=== PATIENT | female | born 1940 | race Caucasian/White ===

== ENCOUNTER 2016-11-21 07:30 | Inpatient (IN) | payer MEDICARE ==
[~2016-11-21] VITALS: Ht 160 cm; Wt 79.4 kg
--- NOTE | 2016-11-21 18:29 | ER ---
ADMIT: 11/21/2016 RM/LOC: 424 [facility] MR#: [id number] [address] [place] [address] Emergency Room Report SEX: F AGE: 76 : 1940 DATE: 11/21/2016 TIME: 0730 hours. Please refer to my T-sheet for complete H and P. HISTORY OF PRESENT ILLNESS: Briefly, the patient is a 76-year-old, who comes in with shortness of breath. She said it started getting worse last night. She said her legs were swollen, but she also has COPD. She also has a history of atrial fibrillation, anticoagulated two weeks ago. She was admitted for pneumonia. She does not smoke. They moved up here from [place], so she does not have a primary. PHYSICAL EXAMINATION: VITAL SIGNS: Blood pressure 144/51, pulse 130, respirations 30, temp 97.2, saturating 96% on a nebulizer. GENERAL: She is anxious. HEENT: Grossly normal. LUNGS: Coarse with expiratory wheezes. Accessory muscle use. HEART: Irregularly irregular. Tachycardic. ABDOMEN: Soft. EXTREMITIES: 2+ edema. NEUROLOGIC: Alert and oriented, nonfocal. EMERGENCY DEPARTMENT COURSE: We did sepsis protocol. EKG was atrial fibrillation, rate 108. No hyperacute changes. Chest x-ray revealed cardiomegaly with a probable left lower lobe infiltrate. CBC normal. Chemistries normal except glucose 283, creatinine 1.2, mag 1.7. Cardiac enzymes negative. Lactate was 3.2, procalcitonin was normal. Blood cultures x2 were sent. Coags were within normal limits including INR 1.17. I did the whole sepsis protocol. We started antibiotics. We gave her a DuoNeb and Decadron 10 IV. She was improved. I talked to Idris, we will admit to the hospital. ASSESSMENT: 1. Lobar pneumonia. 2. Chronic obstructive pulmonary disease. 3. Atrial fibrillation, poorly controlled. 4. Hypo-therapeutic on her anticoagulation. PLAN: Admit to the hospital. Michael Cortez MD/ krystal JOB #: [id number] CC: Angel Steinberg MD, Attending Physician Angel Stienberg MD, Family Physician
--- NOTE | 2016-11-22 14:01 | HP ---
ADMIT: 11/21/2016 RM/LOC: 424 [facility] MR#: [id number] [address] [place] [address] History and Physical SEX: F AGE: 76 : 1940 DATE OF SERVICE: CHIEF COMPLAINT: Shortness of breath. HISTORY OF PRESENT ILLNESS: This is a 76-year-old female. She came in with shortness of breath that had been getting worse since last night. She has recently moved here from [place] because she lives with her son, her son recently got a job here. She does report she was in the hospital couple weeks ago and has had some chronic lung problems for a while. She thinks it is from having pneumonia as a child. Denies ever being a smoker. Denies having any asthma. We have no outside records. She is not the best historian in terms of her history. She has been coughing, nothing is coughing up. She is short of breath, occurs with exertion and it has been severe. Denies any fevers, but does admit her chest does feel tight. PAST MEDICAL HISTORY: 1. Atrial fibrillation. 2. Chronic lung disease, unspecified at this point. 3. Diabetes. 4. Hyperlipidemia. 5. Hypertension. 6. GERD. 7. Chronic anticoagulation. MEDICATIONS: 1. Albuterol nebulize q.2 hours p.r.n. 2. Atorvastatin 40 mg at bedtime. 3. Aspirin 81 mg daily. 4. Brimonidine/timolol 0.2%/0.5% two times daily, eye drops. 5. Cholecalciferol one tab daily, unknown dose. 6. Levemir insulin 30 units daily. 7. Magnesium oxide 400 mg b.i.d. 8. Metformin 1000 mg b.i.d. 9. Metoprolol 25 mg b.i.d. 10.Pantoprazole 40 mg daily. 11.Warfarin 3 mg daily. SOCIAL HISTORY: She is a never smoker. Again, lives with her son. FAMILY HISTORY: Reviewed, but noncontributory. REVIEW OF SYSTEMS: Other complete review of systems was obtained and negative except she has had some constipation. PHYSICAL EXAMINATION: VITAL SIGNS: Temperature 97.6; pulse initially 120s, now down to right at 100; respirations 16, blood pressure 134/90, oxygen saturation 97% on a couple liters of oxygen by nasal cannula. She was hypoxic when she came in. GENERAL: This is a well-appearing but elderly 76-year-old female. She is in ADMIT: 11/21/2016 RM/LOC: 424 [facility] MR#: [id number] [place] [id number] [place] [address] History and Physical SEX: F AGE: 76 : 1940 no apparent distress. HEENT: Head is normocephalic and atraumatic. She has evidence of left-sided Nesbitt's palsy, right side lazy eye. Right pupil reactive to light and accommodation. Throat is clear. NECK: Supple. Trachea not palpable. HEART: Irregularly irregular. LUNGS: Diminished breath sounds bilaterally. End-expiratory wheezes. She is actually crackly on the left lower lobe with deep breath. ABDOMEN: Soft, nontender. EXTREMITIES: Lower extremities have 2+ lower extremity edema bilaterally. She has venous insufficiency changes. She can move all extremities equally bilaterally. No other skin changes can be seen. LABORATORY AND X-RAY DATA: Urine, some glucose, otherwise clear. Lactic acid initially was 3.2, now it is 3.0. Procalcitonin less than 0.05. CMP with sodium 141, potassium 4.2, chloride 107, BUN 24, creatinine 1.2. Liver tests normal. Magnesium is 1.7. Cardiac enzymes are normal. INR is 1.17. X-ray with some left lower lobe pneumonia. ASSESSMENT: 1. Pneumonia with severe sepsis. 2. Acute hypoxic respiratory failure. 3. Diabetes. 4. Atrial fibrillation. 5. Chronic obstructive pulmonary disease. 6. Chronic kidney disease, stage 3. 7. Elevated lactic acid. PLAN: She will be given IV fluids. We will treat her with doxycycline, Zosyn, and vancomycin. Given she was in the hospital about two weeks ago, also watch her fluid intake also because of her edema. Looks like she has history of diastolic heart failure, we will also watch this closely. I will try to obtain some old records from her as well, and follow her INR closely. Angel Steinberg MD/ shirley JOB #: [id number] CC: Angel Steinberg, Attending Physician Angel Steinberg, Family Physician
[2016-11-26] MEDS ORDERED: COUMADIN DPS3 MG PO (16:37)
[2016-11-26] MEDS ORDERED: ASPIRIN EC81 MG PO (16:37)
[2016-11-26] MEDS ORDERED: MAG-OX400 MG PO (16:38)
[2016-11-26] MEDS ORDERED: LIPITOR40 MG PO (16:38)
[2016-11-26] MEDS ORDERED: LOPRESSOR DPS50 MG PO (16:38)
[2016-11-26] MEDS ORDERED: VIBRAMYCIN-DPS100 M2 PO (16:38)
[2016-11-26] MEDS ORDERED: DELTASONE DPS20 MG PO (16:38)
[2016-11-26] MEDS ORDERED: KLOR-CON M2020 ME1 PO (16:38)
[2016-11-26] MEDS ORDERED: BRIMONIDINE TAR15 M1 OS (16:39)
[2016-11-26] MEDS ORDERED: DUONEB DPS3 ML IH (16:39)
[2016-11-26] MEDS ORDERED: TIMOPTIC5 ML OU (16:39)
[2016-11-26] MEDS ORDERED: LEVEMIR100 UNIT/1 SQ (16:40)
[2016-11-26] MEDS ORDERED: MYCOSTATIN PWD15 GM TP (16:41)
[2016-11-26] MEDS ORDERED: NOVOLOG100 UNIT/2 SQ (16:41)
[2016-11-26] MEDS ORDERED: [UNRECOGNIZED DRUG - OTHER] IV (16:42)
--- NOTE | 2016-12-08 06:50 | DS ---
ADMIT: 11/21/2016 RM/LOC: 424 [facility] MR#: [id number] [address] [place] [address] General Discharge Summary SEX: F AGE: 76 : 1940 ADMISSION DATE: 11/21/2016 DISCHARGE DATE: 11/25/2016 FINAL DIAGNOSES: 1. Pneumonia. 2. Hypoxic respiratory failure, which resolved. 3. Diabetes. 4. Atrial fibrillation. 5. Chronic obstructive pulmonary disease, anticoagulation with warfarin. 6. Generalized weakness. REASON FOR ADMISSION: This is a 76-year-old female, presented with weakness and shortness of breath. HOSPITAL COURSE: She was found to have pneumonia and hypoxic respiratory failure. She was placed on pulmonary toilet regimen and IV antibiotics and she gradually did improve, however, she was quite weak. Her INR was maintained in the 2 to 3 range. By the day of discharge, she was 99% on room air, doing much better, however, still weak and needing rehabilitation, so she was set up to be discharged to [facility], which was done. DISCHARGE MEDICATIONS: 1. Aspirin 81 mg daily. 2. Coumadin 3 mg daily. 3. Prednisone 40 mg daily for three days. 4. Potassium 40 mEq daily. 5. Lipitor 40 mg at bedtime. 6. Lopressor 75 mg b.i.d. 7. Magnesium oxide 400 mg b.i.d. 8. Doxycycline 100 mg b.i.d. for 7 days. 9. DuoNebs q.i.d. 10.Brimonidine tartrate/timolol drops 0.2%/0.5% OU b.i.d. 11.Levemir 30 units subcu daily. 12.Low-dose sliding scale q.a.c. 13.Mycostatin powder to skin folds t.i.d. 14.Augmentin 875 mg b.i.d. for 7 days. DISCHARGE INSTRUCTIONS: Otherwise, regular diet. Follow up with me in 2 weeks time. She should have daily weights, PT, and OT. Angel Steinberg MD/ shirley JOB #: [id number] CC: Angel Steinberg MD, Attending Physician Angel Steinberg MD, Family Physician
[2017-03-23] MEDS ORDERED: COREG DPS12.5 MG PO (13:11)
[2017-03-23] MEDS ORDERED: LASIX DPS20 MG PO (13:16)
[2017-03-23] MEDS ORDERED: LEXAPRO DPS10 MG PO (13:16)
[2017-03-23] MEDS ORDERED: VITAMIN B1100 MG PO (13:16)
[2017-03-23] MEDS ORDERED: ASMANEX1 INH IH (13:17)
[2017-03-23] MEDS ORDERED: ZESTRIL5 MG PO (13:17)
[2017-03-23] MEDS ORDERED: TEARS NATURAL D15 ML OU (13:18)
[2017-03-23] MEDS ORDERED: MURO OU (13:18)
[2017-03-23] MEDS ORDERED: MAALOX DPS30 ML PO (13:20)
[2017-03-23] MEDS ORDERED: TYLENOL DPS325 MG PO (13:20)
== END 2016-11-25 11:35 | DRG 871 ==
LOC: ER 07:30 → 4PCU 09:03
PROVIDERS: ADMIT Internal Medicine
DX: A41.9 Sepsis, unspecified organism (principal); J18.1 Lobar pneumonia, unspecified organism; J96.01 Acute respiratory failure with hypoxia; I13.0 Hypertensive heart and chronic kidney disease with heart failure and stage 1 through stage 4 chronic kidney disease, or unspecified chronic kidney disease; E11.22 Type 2 diabetes mellitus with diabetic chronic kidney disease; I50.32 Chronic diastolic (congestive) heart failure; J44.0 Chronic obstructive pulmonary disease with (acute) lower respiratory infection; R65.20 Severe sepsis without septic shock; N18.3 Chronic kidney disease, stage 3 (moderate); I48.91 Unspecified atrial fibrillation; R79.1 Abnormal coagulation profile; E78.5 Hyperlipidemia, unspecified; K21.9 Gastro-esophageal reflux disease without esophagitis; R09.02 Hypoxemia; G51.0 Bell's palsy; Z79.01 Long term (current) use of anticoagulants; Z79.84 Long term (current) use of oral hypoglycemic drugs

== ENCOUNTER 2017-03-15 18:05 | Inpatient (IN) | payer MEDICARE ==
[~2017-03-15 18:05] MED LIST: ASPIRIN EC81 MG PO; BRIMONIDINE TAR15 M1 OS; COUMADIN DPS3 MG PO; DELTASONE DPS20 MG PO; DUONEB DPS3 ML IH; KLOR-CON M2020 ME1 PO; LEVEMIR100 UNIT/1 SQ; LIPITOR40 MG PO; LOPRESSOR DPS50 MG PO; MAG-OX400 MG PO; MYCOSTATIN PWD15 GM TP; NOVOLOG100 UNIT/2 SQ; TIMOPTIC5 ML OU; VIBRAMYCIN-DPS100 M2 PO; [UNRECOGNIZED DRUG - OTHER] IV
[2017-03-23] MEDS ORDERED: COREG DPS12.5 MG PO (13:11)
[2017-03-23] MEDS ORDERED: LEXAPRO DPS10 MG PO (13:16)
[2017-03-23] MEDS ORDERED: VITAMIN B1100 MG PO (13:16)
[2017-03-23] MEDS ORDERED: LASIX DPS20 MG PO (13:16)
[2017-03-23] MEDS ORDERED: ASMANEX1 INH IH (13:17)
[2017-03-23] MEDS ORDERED: ZESTRIL5 MG PO (13:17)
[2017-03-23] MEDS ORDERED: MURO OU (13:18)
[2017-03-23] MEDS ORDERED: TEARS NATURAL D15 ML OU (13:18)
[2017-03-23] MEDS ORDERED: TYLENOL DPS325 MG PO (13:20)
[2017-03-23] MEDS ORDERED: MAALOX DPS30 ML PO (13:20)
== END 2017-03-22 11:45 | DRG 291 ==
DX: I13.0 Hypertensive heart and chronic kidney disease with heart failure and stage 1 through stage 4 chronic kidney disease, or unspecified chronic kidney disease (principal); J96.01 Acute respiratory failure with hypoxia; J18.9 Pneumonia, unspecified organism; I95.9 Hypotension, unspecified; R78.81 Bacteremia; E11.22 Type 2 diabetes mellitus with diabetic chronic kidney disease; E11.649 Type 2 diabetes mellitus with hypoglycemia without coma; I48.91 Unspecified atrial fibrillation; K75.9 Inflammatory liver disease, unspecified; I50.23 Acute on chronic systolic (congestive) heart failure; R41.0 Disorientation, unspecified; N18.9 Chronic kidney disease, unspecified; J98.4 Other disorders of lung; L30.9 Dermatitis, unspecified; L84 Corns and callosities; E78.5 Hyperlipidemia, unspecified; K21.9 Gastro-esophageal reflux disease without esophagitis; Z79.82 Long term (current) use of aspirin; Z79.01 Long term (current) use of anticoagulants; Z86.73 Personal history of transient ischemic attack (TIA), and cerebral infarction without residual deficits; Z66 Do not resuscitate; I25.5 Ischemic cardiomyopathy